=== PATIENT | female | born 1970 | race Two or more races ===

== ENCOUNTER 2022-01-23 09:44 | Emergency (ER) | payer MEDICAID ==
[~2022-01-23] VITALS: Ht 160 cm; Wt 62.6 kg
[2022-01-23] MEDS ORDERED: ONDANSETRON 4 MG TAB.RAPDIS ONE (10:23)
[2022-01-23] MEDS ORDERED: HYDROCODONE/APAP 5/325MG TABLET ONE (10:23)
[2022-01-23] MEDS: ONDANSETRON 4 MG TAB.RAPDIS SL ONE (10:27)
[2022-01-23] MEDS: HYDROCODONE/APAP 5/325MG TABLET PO ONE (10:27)
[2022-01-23] MEDS ORDERED: IBUPROFEN 600 MG TABLET ONE (11:58)
[2022-01-23] MEDS ORDERED: CYCL10TA9 PO (11:59)
[2022-01-23] MEDS ORDERED: IBUP-1957 PO (11:59)
[2022-01-23] MEDS: IBUPROFEN 600 MG TABLET PO ONE (12:01)
[2022-01-23 12:47] VITALS: BP 118/70
== END 2022-01-23 12:47 | disposition home or self-care (01) ==
LOC: ER 10:27
DX: R51.9 Headache, unspecified (principal); M54.2 Cervicalgia; M54.6 Pain in thoracic spine; Z79.1 Long term (current) use of non-steroidal anti-inflammatories (NSAID); V99.XXXA Unspecified transport accident, initial encounter; Y93.89 Activity, other specified; Y92.89 Other specified places as the place of occurrence of the external cause; Y99.8 Other external cause status
CPT/HCPCS: 70450; 72125; 72128; 99284; L0172; Q0162